=== PATIENT | male | born 1960 | race Hispanic/Latino ===

== ENCOUNTER 2024-09-01 15:24 | Emergency (ER) | payer SELFPAY ==
[~2024-09-01] VITALS: Ht 170.2 cm; Wt 59.0 kg
--- NOTE | 2024-09-01 16:16 | EKG ---
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
[2024-09-01 16:28] LABS: BASOPHILS # (AUTO) 0.05 K/uL (0.00-0.20); BASOPHILS % (AUTO) 0.6 % (0.0-5.0); EOSINOPHILS # (AUTO) 0.13 K/uL (0.00-0.70); EOSINOPHILS % (AUTO) 1.5 % (0.0-8.0); HEMATOCRIT 45.5 % (42-54); IMMATURE GRANULOCYTE ABSOLUTE 0.06 K/uL (0-1); LYMPHOCYTES # (AUTO) 1.5 K/uL (1.0-4.8); LYMPHOCYTES % (AUTO) 16.7 % (21.0-51.0); MEAN CORPUSCULAR HEMOGLOBIN 29.2 pg (27.0-33.0); MEAN CORPUSCULAR HGB CONC 32.5 g/dL (32.0-36.0); MEAN CORPUSCULAR VOLUME 89.9 fL (79-99); MONOCYTES # (AUTO) 0.8 K/uL (0.1-1.0); MONOCYTES % (AUTO) 8.6 % (3.0-13.0); NEUTROPHILS # (AUTO) 6.3 K/uL (1.8-7.7); NEUTROPHILS % (AUTO) 71.9 % (40.0-77.0); PLATELET COUNT (AUTO) 253 K/uL (130-400); RED BLOOD CELL COUNT(AUTO) 5.06 MIL/uL (4.50-6.20); RED CELL DISTRIBUTION WIDTH 15.2 % (11.0-15.5); WHITE BLOOD COUNT (AUTO) 8.8 K/uL (4.8-10.8)
[2024-09-01 16:39] LABS: CARBON DIOXIDE 31 mmol/L (21-32); CHLORIDE 104 mmol/L (101-111); GLOMERULAR FILTR. RATE CALC 84 mL/min (>90); GLUCOSE,RANDOM 96 mg/dL (70-105); POTASSIUM 3.9 mmol/L (3.5-5.1); SODIUM SERUM 142 mmol/L (136-145); UREA NITROGEN, BLOOD 9 mg/dL (7-18)
--- NOTE | 2024-09-01 16:47 | HMCIMG ---
LUMBAR SPINE 2-3VWS HISTORY: Generalized body weakness COMPARISON: None FINDINGS: 2 images are lumbar spine were obtained. There are degenerative changes of the lumbar spine spondylosis. Anterior osteophytes are seen. There is straightening of normal lordotic curvature which may be related to muscle spasm or positioning. No loss of vertebral height is seen. No fracture or dislocation is seen. Degenerative changes are seen. IMPRESSION: 1. No fracture is seen. DJD.
[2024-09-01 16:48] LABS: ALANINE AMINOTRANSFERASE 12 U/L (12-78); ALBUMIN 3.2 g/dL (3.5-5.0); AMMONIA < 10 umol/L (11-32); ASPARTATE AMINOTRANSFERASE 12 U/L (10-37); BILIRUBIN,DIRECT 0.1 mg/dL (0.0-0.3); BILIRUBIN,TOTAL 0.5 mg/dL (0.2-1.0); CREATINE KINASE, TOTAL 32 U/L (21-232); TOTAL PROTEIN, SERUM 6.5 g/dL (6.0-8.3)
--- NOTE | 2024-09-01 16:51 | HMCIMG ---
CHEST 1VW HISTORY: Weakness COMPARISON: None FINDINGS: A frontal projection of the chest was obtained. No acute pulmonary infiltrates is seen. The heart is normal in size. Prominent interstitial markings are seen. Degenerative changes are seen. No evidence of aortic calcification is seen. IMPRESSION: 1. No acute pulmonary infiltrate is seen.
--- NOTE | 2024-09-01 17:00 | NUR ---
PLACED 20G ONRIGHT FOREARM. PIV PATENT AND FLUSHED WITH NORMAL SALINE.
[2024-09-01] MEDS: 0.9%NACL 1000ML 1,000 ML IV ONE (17:15)
--- NOTE | 2024-09-01 17:39 | HMCIMG ---
CT HEAD WITHOUT CONTRAST INDICATION: Confusion TECHNIQUE: Noncontrast axial helical CT images from the vertex through the skull base using 5 mm slice thickness without contrast material. Coronal and sagittal reconstructions were also included. Dose reduction techniques was used using integrated, automated and adaptive dose reduction exposure control. CT was performed with one or more of the following dose reduction techniques: Automated exposure control, adjustment of the mA and/or kV according to patient size, or use of iterative reconstruction technique. COMPARISON: None FINDINGS: Scattered and coalescent subcortical and periventricular white matter low attenuating areas likely represent residual of chronic small vessel arteriopathy and/or remote vascular insult. Generalized mild cerebral cortical atrophy is present.. Size of the ventricles is more than expected for degree of brain atrophy and Monsivais index = 0.36. No evidence for abnormal extra-axial fluid collections or masses. No evidence for intracranial parenchymal, epidural, or subdural hemorrhage, mass effect or midline shift. The triana-white matter differentiation is well preserved. No secondary evidence to suggest acute ischemia. Mild calcific plaque is present along the king[place] of the cavernous segments of both internal carotid arteries. The brainstem and cerebellum appear normal. The visualized orbits appear unremarkable. The visible paranasal sinuses and mastoid air cells are clear. The calvarium appears normal. IMPRESSION: Size of the ventricles more than expected for degree of brain atrophy and Monsivais index = 0.36. This can be seen with normal pressure hydrocephalus. Chronic white matter ischemic changes, mild brain atrophy, and arteriosclerotic disease as described, without acute component.
--- NOTE | 2024-09-01 18:10 | NUR ---
PENDING POSSIBLE TRANSFER OUT FOR NEURO SERVICES
--- NOTE | 2024-09-01 18:11 | ERN ---
ED Note History of Present Illness Stated Complaint: DIFFICULTY WALKING Chief Complaint: Low Back Pain/Injury Time Seen by MD: 15:25 Time Seen by Midlevel: 15:25 Dictation: The patient is a 63-year-old male with no significant medical history who pres ents to the emergency department with complaints of weakness, difficulty walking, confusion onset four months ago. Patient also complaints of low back pain. Denies any recent back trauma, urinary or fecal incontinence, denies fevers, nausea vomiting or diarrhea. Allergies: Coded Allergies: No Known Allergies (Unverified Allergy, Unknown, 09/01/24) Past Medical History Past Medical History: No Pertinent History Surgical History: Other Surgical History Other: FACIAL RN Note Reviewed/Agreed w/PFSH: Yes Review of System Dictation Constitutional: Negative for fever,chills, and weight loss Eyes: Negative for injury, pain,redness, and discharge ENT: Negative for injury,pain or swelling Cardiovascular: Negative for chest pain, palpitations, and edema Respiratory: Negative for shortness of breath, cough, and wheezing, Abdomen/GI: Negative for abdominal pain, nausea, vomiting, diarrhea, and constipation Back: Negative for injury and pain : Negative for injury, bleeding and discharge MS/Extremity: Negative for injury and deformity Skin: Negative for rash, and discoloration Neuro: Negative for headache, numbness, tingling, and seizure positive for weakness, difficulty walking Psych: Negative for suicide ideation, homicidal ideation, and hallucinations Initial Vital Sign VS Vital Signs Date Time Temp Pulse Resp B/P (MAP) Pulse Ox O2 Delivery O2 Flow Rate FiO2 09/01/24 15:34 98.2 87 16 123/85 98 Room Air 0 09/01/24 18:46 21 Physical Exam Dictation Vital Signs reviewed General Appearance: Alert, oriented x 2, no acute distress, well developed, nourished. Head and Face: non-traumatic. Eyes: PERRL, pink conjunctivas, eyelid no trauma, anterior chamber with arcus senilis. Ears: Pinnas intact and no signs of trauma or erythema ear canals clear and no discharge TM no erythema Nose: No discharge, no bleeding. Oropharynx: Mouth normal, tongue pink. pharynx clear,no erythema, tonsils no exudates, no abscesses noted, mucous membrane moist Neck: Supple, non-tender, no thyromegaly, no masses, no JVD, no bruits Breast:Deferred Chest:No tenderness, no crepitus, no paradoxical movement, no retractions Lungs:Clear, well-ventilated, symmetric, no rales, no wheezing, no rhonchi, no stridor, good breath sounds bilaterally Heart: Regular rate, regular rhythm, no murmur, no gallops Vascular: no peripheral edema, Abdomen: Soft, positive bowel sounds, nondistended, no guarding, nontender, no rebound, no masses no hepatomegaly, no splenomegaly, no Shi's sign, no hernias. Rectal: Deferred Genital: Deferred Neurological: Normal speech, motor function intact, sensory function intact , no facial droop, upper extremities equal in strength, lower extremities equal in strength. Musculoskeletal: Neck nontender, full range of motion, back nontender, full range of motion, Extremities: nontender, full range of motion Skin: Color pink, dry, no turgor, no rash, no lacerations, no abrasions, no contusions. Lymphatic: Deferred Results (Laboratory/Radiology) Laboratory/Radiology Laboratory Tests Test 09/01/24 16:19 White Blood Count 8.8 K/uL (4.8-10.8) Red Blood Count 5.06 MIL/uL (4.50-6.20) Hemoglobin 14.8 g/dL (14.0-18.0) Hematocrit 45.5 % (42-54) Mean Corpuscular Volume 89.9 fL (79-99) Mean Corpuscular Hemoglobin 29.2 pg (27.0-33.0) Mean Corpuscular Hemoglobin Concent 32.5 g/dL (32.0-36.0) Red Cell Distribution Width 15.2 % (11.0-15.5) Platelet Count 253 K/uL (130-400) Mean Platelet Volume 9.0 fL (7.5-10.5) Immature Granulocyte % (Auto) 0.7 % (0-1) Neutrophils (%) (Auto) 71.9 % (40.0-77.0) Lymphocytes (%) (Auto) 16.7 % (21.0-51.0) L Monocytes (%) (Auto) 8.6 % (3.0-13.0) Eosinophils (%) (Auto) 1.5 % (0.0-8.0) Basophils (%) (Auto) 0.6 % (0.0-5.0) Neutrophils # (Auto) 6.3 K/uL (1.8-7.7) Lymphocytes # (Auto) 1.5 K/uL (1.0-4.8) Monocytes # (Auto) 0.8 K/uL (0.1-1.0) Eosinophils # (Auto) 0.13 K/uL (0.00-0.70) Basophils # (Auto) 0.05 K/uL (0.00-0.20) Absolute Immature Granulocyte (auto 0.06 K/uL (0-1) Nucleated Red Blood Cells 0.0 % (0.0-0.19) Sodium Level 142 mmol/L (136-145) Potassium Level 3.9 mmol/L (3.5-5.1) Chloride Level 104 mmol/L (101-111) Carbon Dioxide Level 31 mmol/L (21-32) Blood Urea Nitrogen 9 mg/dL (7-18) Creatinine 1.0 mg/dL (0.5-1.3) Glomerular Filtration Rate Calc 84 mL/min (>90) Random Glucose 96 mg/dL (70-105) Total Calcium 8.6 mg/dL (8.5-10.1) Total Bilirubin 0.5 mg/dL (0.2-1.0) Direct Bilirubin 0.1 mg/dL (0.0-0.3) Aspartate Amino Transf (AST/SGOT) 12 U/L (10-37) Alanine Aminotransferase (ALT/SGPT) 12 U/L (12-78) Alkaline Phosphatase 78 U/L (50-136) Ammonia < 10 umol/L (11-32) L Total Creatine Kinase 32 U/L (21-232) Troponin I High Sensitivity 6 ng/L (4-75) Total Protein 6.5 g/dL (6.0-8.3) Albumin 3.2 g/dL (3.5-5.0) L REASON: confusion ORDERING PHYSICIAN: FORREST VELARDE PROCEDURE: HEAD WO - CT HEAD/BRAIN W/O CONTRAST CT HEAD WITHOUT CONTRAST INDICATION: Confusion TECHNIQUE: Noncontrast axial helical CT images from the vertex through the skull base using 5 mm slice thickness without contrast material. Coronal and sagittal reconstructions were also included. Dose reduction techniques was used using integrated, automated and adaptive dose reduction exposure control. CT was performed with one or more of the following dose reduction techniques: Automated exposure control, adjustment of the mA and/or kV according to patient size, or use of iterative reconstruction technique. COMPARISON: None FINDINGS: Scattered and coalescent subcortical and periventricular white matter low attenuating areas likely represent residual of chronic small vessel arteriopathy and/or remote vascular insult. Generalized mild cerebral cortical atrophy is present.. Size of the ventricles is more than expected for degree of brain atrophy and Monsivais index = 0.36. No evidence for abnormal extra-axial fluid collections or masses. No evidence for intracranial parenchymal, epidural, or subdural hemorrhage, mass effect or midline shift. The triana-white matter differentiation is well preserved. No secondary evidence to suggest acute ischemia. Mild calcific plaque is present along the [place] of the cavernous segments of both internal carotid arteries. The brainstem and cerebellum appear normal. The visualized orbits appear unremarkable. The visible paranasal sinuses and mastoid air cells are clear. The calvarium appears normal. IMPRESSION: Size of the ventricles more than expected for degree of brain atrophy and Monsivais index = 0.36. This can be seen with normal pressure hydrocephalus. Chronic white matter ischemic changes, mild brain atrophy, and arteriosclerotic disease as described, without acute component. REASON: weakness ORDERING PHYSICIAN: FORREST VELARDE [employer] PROCEDURE: CXR1VW - CHEST 1VW CHEST 1VW HISTORY: Weakness COMPARISON: None FINDINGS: A frontal projection of the chest was obtained. No acute pulmonary infiltrates is seen. The heart is normal in size. Prominent interstitial markings are seen. Degenerative changes are seen. No evidence of aortic calcification is seen. IMPRESSION: 1. No acute pulmonary infiltrate is seen. REASON: weakness ORDERING PHYSICIAN: FORREST VELARDE [employer] PROCEDURE: LUMB 2 3VW - LUMBAR SPINE 2-3VWS LUMBAR SPINE 2-3VWS HISTORY: Generalized body weakness COMPARISON: None FINDINGS: 2 images are lumbar spine were obtained. There are degenerative changes of the lumbar spine spondylosis. Anterior osteophytes are seen. There is straightening of normal lordotic curvature which may be related to muscle spasm or positioning. No loss of vertebral height is seen. No fracture or dislocation is seen. Degenerative changes are seen. IMPRESSION: 1. No fracture is seen. DJD. Labs Reviewed?: Yes EKG: (+) rhythm (Sinus rhythm) EKG Comment: Date:09/01/2024 Time:1614 Ventricular rate:77 TN interval:166 QRS duration:91 QT/QTc:384 EKG interpretation: Sinus rhythm Reviewed by ED Attending no STEMI ED Course ED Course Orders Procedure Category Date Status Time Cbc With Differential LAB 09/01/24 Complete 15:51 Chest 1vw RAD 09/01/24 Resulted 15:51 12 Lead Ekg Tracing- EKG 09/01/24 Complete Technical 15:51 0.9%Nacl 1000ml (Ns PHA 09/01/24 Complete 1000ml) 16:00 Creatine Kinase, Total LAB 09/01/24 Complete 15:51 Troponin I High LAB 09/01/24 Complete Sensitivity 15:51 Urinalysis Profile LAB 09/01/24 Logged 15:51 Basic Metabolic Panel LAB 09/01/24 Complete 15:51 Ammonia LAB 09/01/24 Complete 15:51 Hepatic Function Panel LAB 09/01/24 Complete 15:51 Ct Head/Brain W/O CT 09/01/24 Resulted Contrast 15:51 Lumbar Spine 2-3vws RAD 09/01/24 Resulted 15:51 Current Medications Medications (Trade) Dose Ordered Sig/Charanjit Route PRN Reason Start Time Stop Time Status Last Admin Dose Admin Sodium Chloride 1,000 ml @ 0 mls/hr ONCE ONCE IV 09/01/24 16:00 09/01/24 16:01 DC 09/01/24 17:15 Vital Signs Date Time Temp Pulse Resp B/P (MAP) Pulse Ox O2 Delivery O2 Flow Rate FiO2 09/01/24 23:29 98.1 66 18 105/58 98 Room Air* 0 09/01/24 22:30 98.1 74 15 108/70 96 Room Air* 0 09/01/24 21:30 98.2 65 16 112/73 97 Room Air* 0 09/01/24 20:30 98.2 68 17 100/69 96 Room Air* 0 09/01/24 19:30 98.1 77 15 112/74 98 Room Air* 0 09/01/24 18:46 98.4 63 14 131/83 96 Room Air* 0 09/01/24 15:34 98.2 87 16 123/85 98 Room Air 0 [place] [id number] [address] IMAGING REPORT Signed PATIENT: HAIR ALEJANDRO MR#: [id number] : 1960 SEX: M AGE: 63 LOCATION: ED ORDER 52 STATUS: REG ER [facility] REPORT#: [id number] SERVICE 50 REASON: weakness ORDERING PHYSICIAN: FORREST VELARDE [employer] PROCEDURE: LUMB 2 3VW - LUMBAR SPINE 2-3VWS LUMBAR SPINE 2-3VWS HISTORY: Generalized body weakness COMPARISON: None FINDINGS: 2 images are lumbar spine were obtained. There are degenerative changes of the lumbar spine spondylosis. Anterior osteophytes are seen. There is straightening of normal lordotic curvature which may be related to muscle spasm or positioning. No loss of vertebral height is seen. No fracture or dislocation is seen. Degenerative changes are seen. IMPRESSION: 1. No fracture is seen. DJD. DICTATED BY: BRIA NAIDU MD DATE: 09/01/241643 ELECTRONICALLY SIGNED BY: BRIA NAIDU MD DATE: 09/01/241646 [place] [address] IMAGING REPORT Signed PATIENT: HAIR ALEJANDRO MR#: [id number] : 1960 SEX: M AGE: 63 LOCATION: ED ORDER 52 STATUS: REG ER REPORT#: [id number] SERVICE 50 REASON: confusion ORDERING PHYSICIAN: FORREST VELARDE PROCEDURE: HEAD WO - CT HEAD/BRAIN W/O CONTRAST CT HEAD WITHOUT CONTRAST INDICATION: Confusion TECHNIQUE: Noncontrast axial helical CT images from the vertex through the skull base using 5 mm slice thickness without contrast material. Coronal and sagittal reconstructions were also included. Dose reduction techniques was used using integrated, automated and adaptive dose reduction exposure control. CT was performed with one or more of the following dose reduction techniques: Automated exposure control, adjustment of the mA and/or kV according to patient size, or use of iterative reconstruction technique. COMPARISON: None FINDINGS: Scattered and coalescent subcortical and periventricular white matter low attenuating areas likely represent residual of chronic small vessel arteriopathy and/or remote vascular insult. Generalized mild cerebral cortical atrophy is present.. Size of the ventricles is more than expected for degree of brain atrophy and Monsivais index = 0.36. No evidence for abnormal extra-axial fluid collections or masses. No evidence for intracranial parenchymal, epidural, or subdural hemorrhage, mass effect or midline shift. The triana-white matter differentiation is well preserved. No secondary evidence to suggest acute ischemia. Mild calcific plaque is present along the king[place] of the cavernous segments of both internal carotid arteries. The brainstem and cerebellum appear normal. The visualized orbits appear unremarkable. The visible paranasal sinuses and mastoid air cells are clear. The calvarium appears normal. IMPRESSION: Size of the ventricles more than expected for degree of brain atrophy and Monsivais index = 0.36. This can be seen with normal pressure hydrocephalus. Chronic white matter ischemic changes, mild brain atrophy, and arteriosclerotic disease as described, without acute component. DICTATED BY: NERISSA ESTRADA MD DATE: 09/01/241733 ELECTRONICALLY SIGNED BY: NERISSA ESTRADA MD DATE: 09/01/241738 [place] [address] IMAGING REPORT Signed PATIENT: HAIR ALEJANDRO MR#: [id number] : 1960 SEX: M AGE: 63 LOCATION: [facility] ORDER [id number] STATUS: [facility] REPORT#: [id number] SERVICE 1551 REASON: weakness ORDERING PHYSICIAN: FORREST VELARDE PROCEDURE: CXR1VW - CHEST 1VW CHEST 1VW HISTORY: Weakness COMPARISON: None FINDINGS: A frontal projection of the chest was obtained. No acute pulmonary infiltrates is seen. The heart is normal in size. Prominent interstitial markings are seen. Degenerative changes are seen. No evidence of aortic calcification is seen. IMPRESSION: 1. No acute pulmonary infiltrate is seen. DICTATED BY: BRIA NAIDU MD DATE: 09/01/241645 ELECTRONICALLY SIGNED BY: BRIA NAIDU MD DATE: 09/01/24 165 Medical Decision Making MDM MDM: The patient is a 63-year-old male with no significant medical history who presents to the emergency department with complaints of weakness, difficulty walking, confusion onset four months ago. Patient also complaints of low back pain. Denies any recent back trauma, urinary or fecal incontinence, denies fevers, nausea vomiting or diarrhea. CBC showed no leukocytosis, no anemia, chemistry showed no electrolyte imbalance, GFR of 84, normal liver enzymes, negative ammonia, negative troponin. CT head showed a normal pressure hydrocephalus. Patient will be transferred to a facility with Neuro capabilities for further evaluation and treatment. Differential diagnosis: Dehydration, renal failure, electrolyte imbalance, intracerebral hemorrhage Comorbidities: None Tests considered and not ordered secondary to shared decision making include: none Previous outside records reviewed: none Risk of complication and/or morbidity or mortality of patient management: The pa verenice meets criteria for admission. Need for emergency major/minor surgery: No There are no social concerns with this patient. I independently interpreted the tests I ordered (labs, urinalysis, etc.). I discussed the case with the hospitalist for admission. I discussed the case with the following specialists: 2119: Spoke to Dr. Theron Martin neurosurgery at [facility] and discussed case. Reports patient can follow up as outpatient for further evaluation. Patient will need extensive workup but as outpatient. Patient's symptoms are not acute. Reports he can call the office at [phone]. 2199: Patient was signed out to Tre Walsh PA-C Case was discussed with ER attending Dr. Crissy mc at [facility] who agrees to accept and evaluated the patient in the ER. Historian: pateint. I independently interpreted imaging studies and EKGs that I ordered (US, CT, XR, EKG, etc.). External chart review: none. Medical management and examination interpretation discussions were had by me with other qualified healthcare professionals as indicated for the patient's care. DX & DISP Disposition: Transfer ([facility] ER) Departure Impression: Primary Impression: Normal pressure hydrocephalus Condition: Stable Referrals: SELF,REFERRAL (PCP) I have reviewed the case, and I agree with, Diagnosis and Plan I performed the substantive portion of the visit. I have reviewed and personally made and approve the management plan that is documented in the note by myself or the DIPTI. I acknowledge for responsibility for the patient's management plan. FORREST VELARDE Sep 01, 2024 18:11 TRE WALSH Sep 02, 2024 02:08
--- NOTE | 2024-09-01 18:12 | NUR ---
LABORATORY PHLEBOTOMIST ARIANNA INFORMED OF NEED OF TRANSFER
--- NOTE | 2024-09-01 18:22 | NUR ---
I CALLED THE TRANSFER CENTER AND SPOKE W/EVETTE ABOUT NEED TO TX PT FOR NEUROSURGICAL SERVICES. SHE STATED SHE WILL CALL BACK. MOT HAS BEEN STARTED.
--- NOTE | 2024-09-01 18:46 | NUR ---
EVETTE FROM TRANSFER CALLED AND A CALL WAS PATCHED THROUGH TO FORREST LUND TO SPEAK W/DR ZULETA
--- NOTE | 2024-09-01 18:50 | NUR ---
PER CONVERSATION W/DR MATA STATED HE WANTS AN MRI DONE BEFORE HE CONSIDERS ACCEPTING THE PT AT [facility].
--- NOTE | 2024-09-01 19:10 | NUR ---
ASSUMED PT CARE AT THIS TIME, PT IS ALERT AND ORIENTED X2-3, INTERMITTENT CONFUSION NOTED, PT RESTING IN POSITION OF COMFORT, VSS, RESP EVEN AND UNLABORED ON RA, DENIES PAIN AT THIS TIME, PERRL 3MM, PER FAMILY AT BEDSIDE PT HAS BEEN EXPERIENCING PROGRESSIVELY WORSENING GENERAL BODY WEAKNESS OVER THE LAST 6 MONTHS.
--- NOTE | 2024-09-01 19:14 | NUR ---
FEDERICO FROM TRANSFER CENTER CALLED AND ASKED IF WE COULD UPDATE THEM LATER ON MRI
--- NOTE | 2024-09-01 23:21 | NUR ---
REPORT GIVEN TO FRIDA GREGG AT [facility] FOR ER TO ER TRANSFER. ALL QUESTIONS ANSWERED AT THIS TIME. RN EXPECTING PT ARRIVAL TO THE ER.
--- NOTE | 2024-09-01 23:32 | NUR ---
[facility] AWARE OF ER TO ER TRANSFER TO [facility]
--- NOTE | 2024-09-02 00:42 | NUR ---
[facility] AWARE OF ER TO ER TRANSFER TO [place] [id number]
[2024-09-02 02:31] VITALS: BP 103/56; PULSE 66; RESP 18; TEMP 98; O2SAT 97
--- NOTE | 2024-09-02 02:35 | NUR ---
[facility] AT BEDSIDE FOR TRANSPORT TO [facility]. ALL QUESTIONS ANSWERED AT THIS TIME. EMS ASSUMED PT CARE.
== END 2024-09-02 02:38 | disposition short-term general hospital (02) ==
LOC: EDH 15:24
DX: G91.2 (Idiopathic) normal pressure hydrocephalus (principal)
CPT/HCPCS: 99285; 96360; 70450; 96361; 71045; 82550; 80076; 84484; 80048; 82140; 85025; 36415; 72100; 93005; J7030